=== PATIENT | male | born 1980 | race Caucasian/White ===

== ENCOUNTER → 2017-02-06 | Outpatient (CLI) | payer BC ==
[~2017-02-06] MED LIST: CLARITIN10 MG PO; MEDROL DOSEPAK4 MG PO
[2017-02-06 15:07] LABS: BASO % 0.7 % (0.0-1.0); EOS # 0.1 10*3/uL (0.0-0.4); HEMATOCRIT 45.7 % (42.0-52.0); HEMOGLOBIN 15.4 g/dl (14.0-18.0); LYMPH # 1.8 10*3/uL (1.3-4.4); MEAN CELL VOLUME 84.5 fl (80.0-94.0); MEAN CORPUSCULAR HGB 28.5 pg (27.0-31.0); MEAN CORPUSCULAR HGB CONC 33.7 g/dl (33.0-37.0); MEAN PLATELET VOLUME 9.7 fl (9.6-12.3); MONO # 0.7 10*3/uL (0.1-1.0); MONO % 10.7 % (3.0-9.0); NEUT # 3.5 10*3/uL (2.3-7.9); NEUT % 57.1 % (47.0-73.0); PLATELET COUNT AUTOMATED 236 10*3/uL (130-400); RED BLOOD COUNT 5.41 10*6/uL (4.50-5.90); RED CELL DISTRI WIDTH 12.2 % (0-14.5); WHITE BLOOD COUNT 6.1 10*3/uL (4.8-10.8)
[2017-02-06 15:14] LABS: ALBUMIN 4.2 gm/dl (3.1-4.5); ALKALINE PHOSPHATASE 55 U/L (45-117); BUN 15 mg/dl (7-24); CHLORIDE 104 mmol/L (98-107); CREATININE 1.03 mg/dL (0.70-1.30); LDH 152 U/L (87-241); POTASSIUM 3.7 mmol/L (3.5-5.1); SGOT/AST 14 IU/L (3-35); SGPT/ALT 29 U/L (12-78); SODIUM 140 mmol/L (136-145); TOTAL PROTEIN 7.7 gm/dL (6.4-8.2)
[2017-02-06 15:16] LABS: BETA-HCG, TUMOR MARKER < 1.0 mIU/mL (<1)
== END | disposition home or self-care (01) ==
LOC: LAB 13:48 → US 14:00
PROVIDERS: Urology
DX: N43.3 Hydrocele, unspecified (principal); N32.89 Other specified disorders of bladder

== ENCOUNTER → 2018-07-09 | Outpatient (CLI) | payer BC ==
[~2018-07-09] MED LIST changes: +Motrin,Rufen800 MG PO; +Orphenadrine C100 MG PO
== END | disposition home or self-care (01) ==
LOC: US 11:34
DX: N50.812 Left testicular pain (principal)

== ENCOUNTER 2018-11-08 05:42 | Emergency (ER) | payer BC ==
[~2018-11-08] VITALS: Wt 106.6 kg
[~2018-11-08 05:42] MED LIST changes: -Motrin,Rufen800 MG PO; -Orphenadrine C100 MG PO
[2018-11-08 06:40] LABS: BASO % 0.3 % (0.0-1.0); EOS # 0.2 10*3/uL (0.0-0.4); EOS % 1.3 % (1.0-4.0); HEMATOCRIT 45.6 % (42.0-52.0); HEMOGLOBIN 14.8 g/dl (14.0-18.0); LYMPH # 1.2 10*3/uL (1.3-4.4); LYMPH % 9.7 % (27.0-41.0); MEAN CORPUSCULAR HGB 28.2 pg (27.0-31.0); MEAN CORPUSCULAR HGB CONC 32.5 g/dl (33.0-37.0); MEAN PLATELET VOLUME 9.5 fl (9.6-12.3); MONO # 1.5 10*3/uL (0.1-1.0); MONO % 12.4 % (3.0-9.0); NEUT % 75.8 % (47.0-73.0); PLATELET COUNT AUTOMATED 223 10*3/uL (130-400); RED BLOOD COUNT 5.24 10*6/uL (4.50-5.90); RED CELL DISTRI WIDTH 12.5 % (0-14.5); WHITE BLOOD COUNT 11.9 10*3/uL (4.8-10.8)
[2018-11-08 06:55] LABS: ALBUMIN 3.8 gm/dl (3.1-4.5); ALKALINE PHOSPHATASE 63 U/L (45-117); BUN 14 mg/dl (7-24); CHLORIDE 106 mmol/L (98-107); CREATININE 0.94 mg/dL (0.70-1.30); POTASSIUM 3.9 mmol/L (3.5-5.1); SGOT/AST 9 IU/L (3-35); SGPT/ALT 27 U/L (12-78); SODIUM 138 mmol/L (136-145); TOTAL PROTEIN 7.2 gm/dL (6.4-8.2)
[2018-11-08 08:14] LABS: BILIRUBIN NEGATIVE (NEGATIVE); BLOOD 3+ (NEGATIVE); CLARITY CLEAR (CLEAR); COLOR YELLOW (YELLOW); GLUCOSE NEGATIVE (NEGATIVE); KETONE 1+ (NEGATIVE); LEUKO ESTERASE NEGATIVE (NEGATIVE); NITRITE NEGATIVE (NEGATIVE); SPECIFIC GRAVITY 1.025 (1.005-1.030); UROBILINOGEN 0.2 E.U./dl (0.2-1.0)
[2018-11-08 08:22] LABS: RBC 21-30 rbc/hpf (0-2)
[2018-11-08 08:23] LABS: BACTERIA 1+; MUCOUS 1+
[2018-11-08] MEDS ORDERED: Motrin,Rufen800 MG PO (08:39)
[2018-11-08] MEDS ORDERED: Orphenadrine C100 MG PO (08:39)
== END 2018-11-08 08:50 | disposition home or self-care (01) ==
LOC: ED 05:42
PROVIDERS: Emergency Medicine Emergency Medical Services
DX: M54.6 Pain in thoracic spine (principal); R31.9 Hematuria, unspecified; M25.511 Pain in right shoulder; W13.3XXA Fall through floor, initial encounter; Y93.E5 Activity, floor mopping and cleaning; Y92.098 Other place in other non-institutional residence as the place of occurrence of the external cause; Y99.8 Other external cause status

== ENCOUNTER 2019-11-02 16:12 | Emergency (ER) | payer BC ==
[~2019-11-02] VITALS: Ht 190.5 cm; Wt 104.3 kg
[~2019-11-02 16:12] MED LIST changes: +Motrin,Rufen800 MG PO; +Orphenadrine C100 MG PO
[2019-11-02] MEDS ORDERED: IBUPROFEN600 MG PO (18:59)
== END 2019-11-02 19:02 | disposition home or self-care (01) ==
LOC: ED 16:12
DX: N45.1 Epididymitis (principal); Z79.899 Other long term (current) drug therapy

== ENCOUNTER → 2020-05-03 | Outpatient (CLI) | payer BC ==
[~2020-05-03] MED LIST changes: +IBUPROFEN600 MG PO
== END | disposition home or self-care (01) ==
LOC: COVID19 09:52
PROVIDERS: ATTEND Internal Medicine
DX: Z20.822 Contact with and (suspected) exposure to COVID-19 (principal)

== ENCOUNTER → 2020-05-05 | Outpatient (CLI) | payer BC | END | disposition home or self-care (01) | LOC: COVID19 12:27 | PROVIDERS: ATTEND Internal Medicine | DX: U07.1 COVID-19 (principal) ==

== ENCOUNTER → 2021-04-01 | Outpatient (CLI) | payer BC | END | disposition home or self-care (01) | LOC: RAD 13:20 | PROVIDERS: ATTEND Nurse Practitioner Family | DX: R05.9 Cough, unspecified (principal); R06.02 Shortness of breath ==

== ENCOUNTER → 2023-07-29 | Outpatient (CLI) | payer BC | END | disposition home or self-care (01) | LOC: RAD 14:51 | PROVIDERS: ATTEND Chiropractor | DX: M54.2 Cervicalgia (principal); R20.0 Anesthesia of skin ==

== ENCOUNTER 2024-09-03 12:27 | Emergency (ER) | payer BC ==
[2024-09-03] MEDS ORDERED: SODIUM CHLORIDE 0.9% 1,000 ML IV ONE (12:45)
[2024-09-03] MEDS ORDERED: Ketorolac Tromethamine 30 MG/ML VIAL IV ONE (12:50)
[2024-09-03] MEDS ORDERED: MORPHINE Sulfate 2 MG/ML SYR IV ONE (12:50)
[2024-09-03] MEDS ORDERED: Ondansetron Hydrochloride 4 MG/2 ML VIAL IV ONE (12:50)
[2024-09-03 13:19] LABS: BASO # 0.1 10*3/uL (0.0-0.1); BASO % 0.7 % (0.0-1.0); EOS # 0.3 10*3/uL (0.0-0.4); EOS % 4.6 % (1.0-4.0); HEMATOCRIT 49.9 % (42.0-52.0); MEAN CELL VOLUME 86.2 fl (80.0-94.0); MEAN CORPUSCULAR HGB 28.3 pg (27.0-31.0); MEAN CORPUSCULAR HGB CONC 32.9 g/dl (33.0-37.0); MEAN PLATELET VOLUME 9.2 fl (9.6-12.3); MONO # 0.6 10*3/uL (0.1-1.0); MONO % 9.3 % (3.0-9.0); NEUT # 3.3 10*3/uL (2.3-7.9); NEUT % 48.1 % (47.0-73.0); PLATELET COUNT AUTOMATED 244 10*3/uL (130-400); RED BLOOD COUNT 5.79 10*6/uL (4.50-5.90); RED CELL DISTRI WIDTH 12.1 % (0-14.5); WHITE BLOOD COUNT 6.8 10*3/uL (4.8-10.8)
[2024-09-03 13:39] LABS: ALKALINE PHOSPHATASE 54 U/L (46-116); BUN 14 mg/dl (9-23); CHLORIDE 103 mmol/L (98-107); LIPASE 49 U/L (12-53); POTASSIUM 3.9 mmol/L (3.4-5.1); SGPT/ALT 18 U/L (5-49); TOTAL PROTEIN 7.1 gm/dL (6.0-8.0)
[2024-09-03 13:53] LABS: BILIRUBIN Negative (Negative); BLOOD Negative (Negative); CLARITY Clear (Clear); COLOR Yellow (Yellow); GLUCOSE Negative (Negative); KETONE Negative (Negative); LEUKO ESTERASE Negative (Negative); NITRITE Negative (Negative)
[2024-09-03 14:02] LABS: MUCOUS TRACE; WBC 0-2 wbc/hpf (0-5)
[2024-09-03] MEDS ORDERED: CIPRO500 MG PO (16:12)
[2024-09-03] MEDS ORDERED: PERCOCET 5-3251 EACH PO (16:12)
== END 2024-09-03 16:15 | disposition home or self-care (01) ==
LOC: ED 12:27
PROVIDERS: Internal Medicine
DX: R10.9 Unspecified abdominal pain (principal); R11.2 Nausea with vomiting, unspecified; I10 Essential (primary) hypertension; Z79.899 Other long term (current) drug therapy